=== PATIENT | male | born 1955 | race Caucasian/White ===

== ENCOUNTER 2018-11-13 17:36 | Inpatient (IN) | payer OTHER ==
[~2018-11-13] VITALS: Ht 177.8 cm; Wt 78.5 kg
[2018-11-13 18:14] LABS: BASOPHILS ABSOLUTE AUTO 0.04 K/mm3 (0.00-0.23); BASOPHILS PERCENT AUTO 0 % (0-2); EOSINOPHILS PERCENT AUTO 2 % (0-6); Hematocrit 45.9 % (37.0-53.0); Hemoglobin 14.8 g/dL (13.5-17.5); IMMATURE GRAN ABSOLUTE AUTO 0.05 K/mm3 (0.00-0.10); IMMATURE GRAN PERCENT AUTO 1 % (0-1); LYMPHOCYTES ABSOLUTE AUTO 2.71 K/mm3 (0.84-5.20); LYMPHOCYTES PERCENT AUTO 29 % (21-46); MONOCYTES ABSOLUTE AUTO 1.44 K/mm3 (0.16-1.47); MONOCYTES PERCENT AUTO 15 % (4-13); Mean Corpuscular HGB 29.9 pg (26.0-34.0); Mean Corpuscular HGB Conc 32.2 g/dL (31.5-36.5); Mean Corpuscular Volume 93 fL (80-100); Mean Platelet Volume 9.2 fL (9.1-12.4); NEUTROPHILS ABSOLUTE AUTO 5.05 K/mm3 (1.96-9.15); NEUTROPHILS PERCENT AUTO 53 % (41-73); Platelet Count 344 K/mm3 (150-400); RDW Coefficient Variation 13.2 % (11.7-14.2); Red Blood Cell Count 4.95 M/mm3 (4.30-5.90); White Blood Cell Count 9.49 K/mm3 (4.00-11.30)
[2018-11-13] MEDS ORDERED: NIAC500 PO (18:35)
[2018-11-13] MEDS ORDERED: FISH OIL 1,0001 EACH PO (18:35)
[2018-11-13] MEDS ORDERED: UBID10 (18:35)
[2018-11-13] MEDS ORDERED: GINKGO BILOBA30 MG PO (18:35)
[2018-11-13 18:50] LABS: Alanine Aminotransfer (ALT/SGP 33 U/L (12-78); Albumin, Blood 3.9 g/dL (3.4-5.0); Alk Phos 64 U/L (50-136); Anion Gap 7 mmol/L (6-16); Aspartate Aminotrans (AST/SGOT 38 U/L (12-37); Bilirubin, Total 0.3 mg/dL (0.1-1.0); Blood Urea Nitrogen 7 mg/dL (8-24); Bun/Creatinine Ratio 8.2 (12.0-20.0); CO2, Blood 26 mmol/L (21-32); Calcium, Blood 8.9 mg/dL (8.5-10.1); Chloride, Blood 104 mmol/L (98-108); Creatinine, Blood 0.86 mg/dL (0.60-1.20); Glomerular Filtration Rate >60 (60-); Glucose, Blood 103 mg/dL (70-99); Potassium, Blood 3.6 mmol/L (3.5-5.5); Sodium, Blood 137 mmol/L (136-145); Total Protein, Blood 7.9 g/dL (6.4-8.2)
[2018-11-13 20:07] LABS: Cholesterol 236 mg/dL (50-200); HDL Cholesterol 80 mg/dL (>39); LDL/HDL RATIO 1.6; Low Density Lipoprotein Chol 130 mg/dL (0-110); Magnesium, Blood 2.2 mg/dL (1.6-2.4); Triglycerides 132 mg/dL (30-160); Very Low Density Lipoprot Chol 26 mg/dL (6-32)
[2018-11-13 20:38] LABS: International Normalized Ratio 0.96; Prothrombin Time Results 9.9 Sec (9.7-11.5)
[2018-11-14 07:16] LABS: Hematocrit 42.4 % (37.0-53.0); Hemoglobin 14.1 g/dL (13.5-17.5); Mean Corpuscular HGB 30.2 pg (26.0-34.0); Mean Corpuscular HGB Conc 33.3 g/dL (31.5-36.5); Mean Corpuscular Volume 91 fL (80-100); Mean Platelet Volume 9.4 fL (9.1-12.4); Platelet Count 305 K/mm3 (150-400); RDW Coefficient Variation 13.4 % (11.7-14.2); RDW Standard Deviation 44.6 fL (35.1-46.3); Red Blood Cell Count 4.67 M/mm3 (4.30-5.90)
[2018-11-14 07:30] LABS: Anion Gap 6 mmol/L (6-16); Blood Urea Nitrogen 6 mg/dL (8-24); Bun/Creatinine Ratio 8.5 (12.0-20.0); CO2, Blood 25 mmol/L (21-32); Calcium, Blood 8.2 mg/dL (8.5-10.1); Chloride, Blood 107 mmol/L (98-108); Creatinine, Blood 0.71 mg/dL (0.60-1.20); Glomerular Filtration Rate >60 (60-); Glucose, Blood 116 mg/dL (70-99); Potassium, Blood 3.9 mmol/L (3.5-5.5); Sodium, Blood 138 mmol/L (136-145)
[2018-11-14 07:31] LABS: International Normalized Ratio 1.06; Prothrombin Time Results 10.9 Sec (9.7-11.5)
--- NOTE | 2018-11-14 07:51 | NUR ---
SHIFT SUMMARY PATIENT ADMITTED EARLIER THIS SHIFT AND WAS ABLE TO TRANSFER SELF FROM THE GURNEY TO THE BED. PATIENT PLEASENT AND COOPERATIVE THROUGHOUT THE NIGHT. HEPARIN GTT RUNNING PER ORDERS. PATIENT HAD DENIED ANY CHEST PAIN THROUGHOUT THE NIGHT. PATIENT DOES APPEAR TO SLIGHTLY ANXIOUS ABOUT POSSIBLE DIAGNOSES AND PROCEDURE IN THE AM. PATIENT HAS REMAINED NPO FOR POSSIBLE PROCEDURE. PATIENT APPEARED TO SLEEP WELL THROUGHUT THE NIGHT. REPORT GIVEN TO ONCOMING RN.
--- NOTE | 2018-11-14 08:28 | NUR ---
Echocardiogram is in progress at this time; the pt states that Dr. Kovacs came to see him, and the plan is for an angiogram to be done today. Heparin drip was stopped by the mattress inspector when he was here to see the pt.
--- NOTE | 2018-11-14 10:30 | NUR ---
The pt has been pleasantly conversant this morning. 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 He feels overwhelmed with all the new medications which he has been given to take this morning and asks, "Am I going to be on these for the rest of my life now?' At this time, the pt has gone to the heart center for an angiogram following completion of the echocardiogram this morning.
--- NOTE | 2018-11-14 11:07 | NUR ---
eCHOCARDIOGRAM USING 0.45ML OF DEFINITY CONTRAST PERFORMED.
--- NOTE | 2018-11-14 12:01 | NUR ---
Returned from heart center. David NG holding pressure on the right groin over an area of possible hematoma; no evidence of bruising or external bleeding, but hard area noted adjacent and superior to the insertion site. After pressure was held, the area of firmness was softer. The pt denies any pain or discomfort. Vital signs stable, is at thebedside helping th pt to void while lying flat.
--- NOTE | 2018-11-14 12:38 | NUR ---
NSR at 68 bpm per payroll specialist tech at this time.
--- NOTE | 2018-11-14 14:14 | NUR ---
Call to Dr. Mariee regarding the hematoma present upon arrival to PCU. Informed of the pt's condition and that it is stable without changes at this time. New orders received.
--- NOTE | 2018-11-15 04:13 | NUR ---
SHIFT SUMMARY: ANGIO SITE REMAINS UNCHANGED WITH NO NEW BLEEDING NOTED, SMALL LUMP PALPATED UNDER SKIN REMAINS THE SAME, PATIENT STATES PAIN IS MINIMAL AND SENSATION AND PULSES GOOD IN AFFECTED LEG. PATIENT VSS, CALL LIGHT WITHIN REACH, BED LOW AND LOCKED.
[2018-11-15 04:42] LABS: Anion Gap 5 mmol/L (6-16); Blood Urea Nitrogen 6 mg/dL (8-24); Bun/Creatinine Ratio 8.6 (12.0-20.0); CO2, Blood 25 mmol/L (21-32); Calcium, Blood 8.4 mg/dL (8.5-10.1); Chloride, Blood 110 mmol/L (98-108); Glomerular Filtration Rate >60 (60-); Glucose, Blood 98 mg/dL (70-99); Sodium, Blood 140 mmol/L (136-145)
--- NOTE | 2018-11-15 07:30 | NUR ---
INITIAL ASSESSMENT: Pt resting in bed. Denies needs. R groin site with TEG CHG intact. Small amount of oozing at site that is under dressing. thumb nail size Knot under the access site. Small amount of bruising noted around site. Had Pt feel site and educated regarding how to monitor for changes and bleeding at site. Pt verbalized understanding. Denies questions. VSS. LS with Inspiratory wheezing. BT positive. Pulses palp. Denies chest pain. Call light in reach. will monitor.
[2018-11-15] MEDS ORDERED: Aspir 8181 MG PO (09:49)
[2018-11-15] MEDS ORDERED: ATOR80 PO (09:50)
[2018-11-15] MEDS ORDERED: CLOP75 PO (09:51)
[2018-11-15] MEDS ORDERED: LOSA50 PO (09:52)
[2018-11-15] MEDS ORDERED: METO25 PO (09:53)
--- NOTE | 2018-11-15 11:05 | NUR ---
Discharge: Pt was given verbal and written discharge instructions. Verbalzied understanding, Denies questions. IV discontinued and cath intact. information about groin site and plavix contract given. Stable at time of discharge. Pt states that he is going to ambulate out with his . Stable at this time.
== END 2018-11-15 11:46 | disposition home or self-care (01) | DRG 282 ==
LOC: ER 17:36 → PCU 19:27
PROVIDERS: Emergency Medicine; Hospitalist; Nurse Practitioner Acute Care; ADMIT Internal Medicine
PROC: B2111ZZ Fluoroscopy of Multiple Coronary Arteries using Low Osmolar Contrast (ICD-10-PCS; principal; 2018-11-14)
PROC: 4A023N7 Measurement of Cardiac Sampling and Pressure, Left Heart, Percutaneous Approach (ICD-10-PCS; 2018-11-14)
DX: I21.4 Non-ST elevation (NSTEMI) myocardial infarction (principal); I25.10 Atherosclerotic heart disease of native coronary artery without angina pectoris; E78.5 Hyperlipidemia, unspecified; I10 Essential (primary) hypertension; F10.10 Alcohol abuse, uncomplicated; Z87.891 Personal history of nicotine dependence; Z28.20 Immunization not carried out because of patient decision for unspecified reason
CPT/HCPCS: 36415; 71046; 80048; 80053; 80061; 83735; 84443; 84484; 85025; 85027; 85347; 85610; 85730; 86850; 86900; 86901; 93005; 93010; 93458; 99152; 99153; 99285-25; C1725; C1760; C1769; C1874; C1887; C8929; C9113; C9600; J1644; J2250; J3010; J7030; Q9957; Q9967